=== PATIENT | female | born 1960 | race Caucasian/White ===

== ENCOUNTER 2019-06-25 11:26 | Emergency (ER) | payer BC ==
[~2019-06-25] VITALS: Ht 157.5 cm; Wt 68.2 kg
[2019-06-25 11:32] VITALS: Ht 157.5 cm; Wt 68.2 kg
[2019-06-25] MEDS ORDERED: MOBIC7.5 MG PO (11:35)
[2019-06-25] MEDS ORDERED: CELEXA40 MG PO (11:35)
[2019-06-25] MEDS ORDERED: ESTRACE2 MG PO (11:35)
[2019-06-25] MEDS ORDERED: PRAVACHOL40 MG PO (11:36)
[2019-06-25] MEDS ORDERED: HYDROCODON-ACE1 EAC7 PO (11:37)
[2019-06-25 12:34] VITALS: BP 126/68
== END 2019-06-25 12:35 | disposition home or self-care (01) ==
LOC: D.ER 11:26
DX: M54.5 Low back pain (principal)